=== PATIENT | female | born 1965 | race Caucasian/White ===

== ENCOUNTER 2021-05-14 09:40 | Emergency (ER) | payer OTHER ==
[2021-05-14 09:47] VITALS: BP 163/83; PULSE 81; TEMP 98.4; BMI 25.7
[2021-05-14] MEDS ORDERED: KETOROLAC TROMETHAMINE 60 MG/2 ML VIAL IM ONE (10:30)
[2021-05-14] MEDS ORDERED: CYCLOBENZAPRINE HCL 10 MG TABLET (FP) PO ONE (10:30)
[2021-05-14] MEDS ORDERED: KETOROLAC TROMETHAMINE 60 MG/2 ML VIAL ONE (10:34)
[2021-05-14] MEDS ORDERED: CYCLOBENZAPRINE HCL 10 MG TABLET (FP) ONE (10:34)
== END 2021-05-14 12:09 | disposition home or self-care (01) ==
LOC: JER 09:40 → JERFT 09:40
PROC: 3E0233Z Introduction of Anti-inflammatory into Muscle, Percutaneous Approach (ICD-10-PCS; principal; 2021-05-14)
DX: M54.5 Low back pain (principal)
CPT/HCPCS: 99284-25